=== PATIENT | male | born 1980 | race Hispanic/Latino ===

== ENCOUNTER 2017-09-17 22:50 | Inpatient (IN) | payer BC ==
[~2017-09-17] VITALS: Ht 172.7 cm; Wt 135.6 kg
[2017-09-17] MEDS ORDERED: ONDANSETRON HCL MDV 20ML 2 MG/ML VIAL ONE (23:11)
[2017-09-17] MEDS ORDERED: MORPHINE SULFATE 4 MG/1ML SYG ONE ×2 (23:11→23:47)
[2017-09-17] MEDS ORDERED: SODIUM CHLORIDE 0.9% 1000ML 1,000 ML IV ONE (23:11)
[2017-09-17 23:22] LABS: EOSINOPHILS % (AUTO) 2.4 % (0.0-8.0); HEMATOCRIT 44.6 % (42-54); MEAN CORPUSCULAR HEMOGLOBIN 30.2 pg (27.0-33.0); MEAN CORPUSCULAR VOLUME 88.7 fL (79-99); MONOCYTES % (AUTO) 6.7 % (3.0-13.0); NEUTROPHILS % (AUTO) 78.9 % (40.0-77.0); PLATELET COUNT (AUTO) 335 K/uL (130-400); RED BLOOD CELL COUNT(AUTO) 5.03 MIL/uL (4.50-6.20); RED CELL DISTRIBUTION WIDTH 13.7 % (11.0-15.5); WHITE BLOOD COUNT (AUTO) 8.4 K/uL (4.8-10.8)
[2017-09-17 23:26] LABS: CREATININE 0.9 mg/dL (0.5-1.5); POTASSIUM 3.4 mmol/L (3.5-5.1)
[2017-09-17 23:30] LABS: ALBUMIN 3.6 g/dL (3.5-5.0); BILIRUBIN,TOTAL 4.5 mg/dL (0.2-1.0); TOTAL PROTEIN, SERUM 8.3 g/dL (6.0-8.3)
[2017-09-18 02:15] VITALS: BP 125/75
[2017-09-18] MEDS: SODIUM CHLORIDE 0.9% 1000ML 1,000 ML IV SCH ×3 (02:36→19:34)
[2017-09-18] MEDS: MEPERIDINE-PF 50 MG/ML SYG IVP PRN ×3 (03:44→20:10)
[2017-09-18 07:39] VITALS: BP 132/73
[2017-09-18] MEDS: PANTOPRAZOLE 40 MG/VIAL IVP SCH ×2 (08:55→20:10)
[2017-09-18] MEDS: ENOXAPARIN SODIUM 40 MG/0.4 ML SYRINGE SQ SCH (08:58)
[2017-09-18 11:00] VITALS: BP 123/76
[2017-09-18 16:00] VITALS: BP 111/65
[2017-09-18 19:00] VITALS: BP 122/70
[2017-09-18] MEDS ORDERED: DIPHENHYDRAMINE HCL 25 MG CAPSULE PO PRN (22:45)
[2017-09-18 23:00] VITALS: BP 125/70
[2017-09-18] MEDS ORDERED: POTASSIUM CHLORIDE 20 MEQ ERTAB PO PRN (23:00)
[2017-09-18] MEDS ORDERED: POTASSIUM CHLORIDE 20MEQ/100ML 100 ML IV PRN (23:00)
[2017-09-18] MEDS ORDERED: POTASSIUM CHLORIDE 10% ELIXIR 20 MEQ/15 ML UDCUP PO PRN (23:00)
[2017-09-18] MEDS ORDERED: LIDOCAINE HCL-MPF 1% 2ML VIAL IVP PRN (23:00)
[2017-09-19 03:00] VITALS: BP 136/85
[2017-09-19] MEDS: SODIUM CHLORIDE 0.9% 1000ML 1,000 ML IV SCH ×3 (03:21→18:34)
[2017-09-19] MEDS: MEPERIDINE-PF 50 MG/ML SYG IVP PRN ×3 (05:01→20:30)
[2017-09-19 05:13] LABS: HEMATOCRIT 40.4 % (42-54); MEAN CORPUSCULAR HEMOGLOBIN 30.3 pg (27.0-33.0); MEAN CORPUSCULAR HGB CONC 34.3 g/dL (32.0-36.0); MEAN CORPUSCULAR VOLUME 88.4 fL (79-99); PLATELET COUNT (AUTO) 302 K/uL (130-400); RED BLOOD CELL COUNT(AUTO) 4.58 MIL/uL (4.50-6.20); RED CELL DISTRIBUTION WIDTH 13.9 % (11.0-15.5); WHITE BLOOD COUNT (AUTO) 6.1 K/uL (4.8-10.8)
[2017-09-19 05:14] LABS: BILIRUBIN,TOTAL 3.9 mg/dL (0.2-1.0); CREATININE 0.8 mg/dL (0.5-1.5); POTASSIUM 3.7 mmol/L (3.5-5.1)
[2017-09-19 08:46] VITALS: BP 136/71
[2017-09-19] MEDS: ENOXAPARIN SODIUM 40 MG/0.4 ML SYRINGE SQ SCH (09:17)
[2017-09-19] MEDS: PANTOPRAZOLE 40 MG/VIAL IVP SCH ×2 (09:17→20:30)
[2017-09-19 11:00] VITALS: BP 119/73
[2017-09-19] MEDS: ONDANSETRON HCL MDV 20ML 2 MG/ML VIAL IVP PRN (14:28)
[2017-09-19 16:00] VITALS: BP 136/75
[2017-09-19 19:15] VITALS: BP 136/73
[2017-09-20] VITALS (7 sets, daily range): BP systolic 122–136; BP diastolic 69–86
[2017-09-20] MEDS: ONDANSETRON HCL MDV 20ML 2 MG/ML VIAL IVP PRN ×3 (00:39→20:34)
[2017-09-20] MEDS: SODIUM CHLORIDE 0.9% 1000ML 1,000 ML IV SCH ×2 (00:39→16:16)
[2017-09-20 08:32] LABS: BASOPHILS % (AUTO) 1.4 % (0.0-5.0); HEMATOCRIT 43.1 % (42-54); LYMPHOCYTES % (AUTO) 28.6 % (21.0-51.0); MEAN CORPUSCULAR HEMOGLOBIN 30.2 pg (27.0-33.0); MEAN CORPUSCULAR HGB CONC 33.9 g/dL (32.0-36.0); MONOCYTES % (AUTO) 11.4 % (3.0-13.0); NEUTROPHILS % (AUTO) 53.6 % (40.0-77.0); NUCLEATED RED BLOOD CELLS 0.1 % (0.0-0.19); PLATELET COUNT (AUTO) 303 K/uL (130-400); RED BLOOD CELL COUNT(AUTO) 4.85 MIL/uL (4.50-6.20); RED CELL DISTRIBUTION WIDTH 13.8 % (11.0-15.5); WHITE BLOOD COUNT (AUTO) 5.1 K/uL (4.8-10.8)
[2017-09-20 08:37] LABS: CREATININE 0.8 mg/dL (0.5-1.5); POTASSIUM 3.9 mmol/L (3.5-5.1)
[2017-09-20 08:42] LABS: INR 0.94 (0.85-1.15); PARTIAL THROMBOPLASTIN TIME 23.6 SEC (26.3-35.5); PROTHROMBIN TIME 9.7 SEC (9.6-11.6)
[2017-09-20 08:43] LABS: ALBUMIN 3.2 g/dL (3.5-5.0); BILIRUBIN,TOTAL 3.6 mg/dL (0.2-1.0); TOTAL PROTEIN, SERUM 7.6 g/dL (6.0-8.3)
[2017-09-20] MEDS ORDERED: GADOBENATE DIMEGLUMINE 20 ML IV ONE (09:19)
[2017-09-20] MEDS: ENOXAPARIN SODIUM 40 MG/0.4 ML SYRINGE SQ SCH (09:21)
[2017-09-20] MEDS: PANTOPRAZOLE 40 MG/VIAL IVP SCH (09:22)
[2017-09-21] MEDS: SODIUM CHLORIDE 0.9% 1000ML 1,000 ML IV SCH ×2 (01:05→17:49)
[2017-09-21 04:05] VITALS: BP 134/76
[2017-09-21 08:08] VITALS: BP 124/74
[2017-09-21] MEDS: PANTOPRAZOLE 40 MG/VIAL IVP SCH (10:51)
[2017-09-21 11:54] VITALS: BP 127/85
[2017-09-21 12:15] LABS: HEPATITIS A ANTIBODY IGM Negative (Negative); HEPATITIS B CORE IGM Negative (Negative); HEPATITIS Bs ANTIGEN SCREEN P Negative (Negative)
[2017-09-21 15:23] VITALS: BP 128/74
[2017-09-21] MEDS: MEPERIDINE-PF 50 MG/ML SYG IVP PRN (18:56)
[2017-09-21 19:35] VITALS: BP 125/66
[2017-09-21 22:01] LABS: ALBUMIN 3.3 g/dL (3.5-5.0); BILIRUBIN,TOTAL 3.3 mg/dL (0.2-1.0); CREATININE 0.9 mg/dL (0.5-1.5); POTASSIUM 3.7 mmol/L (3.5-5.1); TOTAL PROTEIN, SERUM 7.8 g/dL (6.0-8.3)
[2017-09-21] MEDS: ONDANSETRON HCL MDV 20ML 2 MG/ML VIAL IVP PRN (23:38)
[2017-09-22] VITALS (22 sets, daily range): BP systolic 76–151; BP diastolic 36–94
[2017-09-22] MEDS: SODIUM CHLORIDE 0.9% 1000ML 1,000 ML IV SCH ×2 (02:59→14:56)
[2017-09-22] MEDS ORDERED: ISOVUE-370 50ML VIAL IV ONE (06:48)
[2017-09-22] MEDS ORDERED: GLYCOPYRROLATE 0.2 MG/ML 5 ML VIAL ONE (06:54)
[2017-09-22] MEDS ORDERED: DEXAMETHASONE SOD PHOSPHATE 10MG/ML 1ML VIAL ONE (06:55)
[2017-09-22] MEDS ORDERED: ROCURONIUM BROMIDE 10MG/1ML 5ML VL ONE (06:55)
[2017-09-22] MEDS ORDERED: MIDAZOLAM HCL 1 MG/ML 2ML VIAL ONE ×2 (06:55→07:24)
[2017-09-22] MEDS ORDERED: LIDOCAINE PF 2% 5ML ABBOJECT ONE (06:55)
[2017-09-22] MEDS ORDERED: LIDOCAINE HCL MPF 1% 5ML VIAL ONE (06:55)
[2017-09-22] MEDS ORDERED: LIDOCAINE HCL 2% JELLY 5 ML ONE (06:55)
[2017-09-22] MEDS ORDERED: LIDOCAINE HCL 4% LTA SOL 4 ML VIAL ONE (06:55)
[2017-09-22] MEDS ORDERED: PROPOFOL 10 MG/ML 20ML VIAL IV ONE ×2 (06:55→07:24)
[2017-09-22] MEDS ORDERED: NEOSTIGMINE METHYLSULFATE 1MG/ML IV ONE (06:55)
[2017-09-22] MEDS ORDERED: SUCCINYLCHOLINE CHLORIDE 20 MG/ML 10 ML VIAL ONE ×2 (06:55→07:06)
[2017-09-22] MEDS ORDERED: ONDANSETRON HCL MDV 20ML 2 MG/ML VIAL ONE (06:55)
[2017-09-22] MEDS ORDERED: FENTANYL CITRATE PF 50 MCG/1 ML 5ML AMP IV ONE ×2 (06:56)
[2017-09-22] MEDS: INDOMETHACIN 50 MG SUPP.RECT RC SCH ×2 (07:40→08:40)
[2017-09-22] MEDS: FAMOTIDINE/PF 20 MG/2 ML VIAL IV SCH ×2 (08:48→20:31)
[2017-09-22] MEDS ORDERED: PHENOL 177 ML BOTTLE PO PRN (11:00)
[2017-09-22] MEDS: ONDANSETRON HCL MDV 20ML 2 MG/ML VIAL IVP PRN (19:14)
[2017-09-23 04:26] VITALS: BP 126/66
[2017-09-23] MEDS: SODIUM CHLORIDE 0.9% 1000ML 1,000 ML IV SCH ×2 (04:49→17:40)
[2017-09-23 06:23] LABS: BILIRUBIN,DIRECT 1.3 mg/dL (0.0-0.3); BILIRUBIN,TOTAL 2.1 mg/dL (0.2-1.0); CREATININE 0.8 mg/dL (0.5-1.5); POTASSIUM 3.7 mmol/L (3.5-5.1); TOTAL PROTEIN, SERUM 7.4 g/dL (6.0-8.3)
[2017-09-23 08:03] VITALS: BP 115/69
[2017-09-23] MEDS: ONDANSETRON HCL MDV 20ML 2 MG/ML VIAL IVP PRN (08:03)
[2017-09-23] MEDS: FAMOTIDINE/PF 20 MG/2 ML VIAL IV SCH (08:03)
[2017-09-23 11:09] VITALS: BP 130/65
[2017-09-23 16:25] VITALS: BP 123/72
== END 2017-09-23 18:35 | disposition home or self-care (01) | DRG 439 ==
LOC: EDH 22:50 → OBSVTOIN 09-18 01:30 → 3AH 09-18 01:30
PROVIDERS: ADMIT Internal Medicine; ATTEND Internal Medicine
PROC: 0F798ZZ Dilation of Common Bile Duct, Via Natural or Artificial Opening Endoscopic (ICD-10-PCS; principal; 2017-09-22)
DX: K85.10 Biliary acute pancreatitis without necrosis or infection (principal); K80.51 Calculus of bile duct without cholangitis or cholecystitis with obstruction; K86.1 Other chronic pancreatitis; Z90.49 Acquired absence of other specified parts of digestive tract
CPT/HCPCS: 36415; 74183; 74330; 76705; 80053; 80074; 80076; 82248; 83690; 84478; 85025; 85027; 85610; 85730; 93005; 99291; A9577; C1769; C1773; C9113; J0330; J1100; J1650; J2001; J2175; J2250; J2270; J2704; J2710; J3010; J3490; J7030; Q0163; Q9967

== ENCOUNTER 2017-11-22 22:38 | Inpatient (IN) | payer BC ==
[~2017-11-22] VITALS: Ht 170.2 cm; Wt 132.4 kg
[2017-11-22 23:00] LABS: BASOPHILS % (AUTO) 1.2 % (0.0-5.0); EOSINOPHILS % (AUTO) 2.1 % (0.0-8.0); HEMATOCRIT 40.9 % (42-54); LYMPHOCYTES % (AUTO) 36.7 % (21.0-51.0); MEAN CORPUSCULAR HEMOGLOBIN 30.4 pg (27.0-33.0); MEAN CORPUSCULAR HGB CONC 34.7 g/dL (32.0-36.0); MEAN CORPUSCULAR VOLUME 87.7 fL (79-99); MONOCYTES % (AUTO) 10.4 % (3.0-13.0); NEUTROPHILS % (AUTO) 49.6 % (40.0-77.0); PLATELET COUNT (AUTO) 297 K/uL (130-400); RED BLOOD CELL COUNT(AUTO) 4.66 MIL/uL (4.50-6.20); RED CELL DISTRIBUTION WIDTH 13.2 % (11.0-15.5); WHITE BLOOD COUNT (AUTO) 7.6 K/uL (4.8-10.8)
[2017-11-22 23:08] LABS: CREATININE 1.1 mg/dL (0.5-1.5); POTASSIUM 3.7 mmol/L (3.5-5.1)
[2017-11-22] MEDS ORDERED: FAMOTIDINE/PF 20 MG/2 ML VIAL IV ONE (23:08)
[2017-11-22] MEDS ORDERED: MORPHINE SULFATE 2 MG/ML 1ML SYG ONE (23:08)
[2017-11-22 23:12] LABS: ALBUMIN 3.7 g/dL (3.5-5.0); BILIRUBIN,TOTAL 0.2 mg/dL (0.2-1.0); TOTAL PROTEIN, SERUM 7.6 g/dL (6.0-8.3)
[2017-11-22] MEDS ORDERED: MAG HYDROX/AL HYDROX/SIMETH ES 30 ML SUSP UDCUP ONE (23:38)
[2017-11-22] MEDS ORDERED: LIDOCAINE HCL 2% VISCOUS 15 ML UDCUP ONE (23:38)
[2017-11-23] MEDS ORDERED: SODIUM CHLORIDE 0.9% 1000ML 1,000 ML IV ONE ×2 (00:45→08:40)
[2017-11-23] MEDS ORDERED: KETOROLAC TROMETHAMINE 30MG/ML ONE (00:45)
[2017-11-23 02:14] LABS: APPEARANCE,URINE Turbid (CLEAR); BILIRUBIN,URINE Negative (NEGATIVE); COLOR,URINE Yellow (YELLOW); GLUCOSE, URINE (UA) Negative (NEGATIVE); KETONES,URINE Negative (NEGATIVE); LEUKOCYTE ESTERASE ,URINE Negative (NEGATIVE); NITRATE,URINE Negative (NEGATIVE); OCCULT BLOOD,URINE Negative (NEGATIVE); PH,URINE 8.5 (5.0-8.0); PROTEIN,URINE Trace (NEGATIVE); UROBILINOGEN,URINE 0.2 mg/dL (0.2-1.0)
[2017-11-23 02:32] LABS: BACTERIA,URINE Few /HPF (None Seen); RBC,URINE 0-1 /HPF (0-1); SQUAMOUS EPITHELIAL CELL,UR 0-2 /HPF (0-2)
[2017-11-23 02:33] LABS: AMORPHOUS SEDIMENT,UR Moderate /LPF (None Seen)
[2017-11-23] MEDS ORDERED: MORPHINE SULFATE 4 MG/1ML SYG ONE (08:32)
[2017-11-23 11:00] VITALS: BP 112/74
[2017-11-23] MEDS: SODIUM CHLORIDE 0.9% 1000ML 1,000 ML IV SCH ×2 (12:15→22:42)
[2017-11-23] MEDS ORDERED: MORPHINE SULFATE 2 MG/ML 1ML SYG IVP PRN (12:15)
[2017-11-23 14:53] LABS: BASOPHILS % (AUTO) 0.9 % (0.0-5.0); EOSINOPHILS % (AUTO) 2.6 % (0.0-8.0); HEMATOCRIT 39.4 % (42-54); LYMPHOCYTES % (AUTO) 38.4 % (21.0-51.0); MEAN CORPUSCULAR HEMOGLOBIN 30.6 pg (27.0-33.0); MEAN CORPUSCULAR HGB CONC 34.7 g/dL (32.0-36.0); MEAN CORPUSCULAR VOLUME 88.2 fL (79-99); MONOCYTES % (AUTO) 8.9 % (3.0-13.0); NEUTROPHILS % (AUTO) 49.2 % (40.0-77.0); PLATELET COUNT (AUTO) 287 K/uL (130-400); RED BLOOD CELL COUNT(AUTO) 4.47 MIL/uL (4.50-6.20); RED CELL DISTRIBUTION WIDTH 13.3 % (11.0-15.5); WHITE BLOOD COUNT (AUTO) 6.2 K/uL (4.8-10.8)
[2017-11-23 15:05] LABS: ALBUMIN 3.3 g/dL (3.5-5.0); BILIRUBIN,TOTAL 0.5 mg/dL (0.2-1.0); CREATININE 0.9 mg/dL (0.5-1.5); POTASSIUM 3.6 mmol/L (3.5-5.1); TOTAL PROTEIN, SERUM 6.8 g/dL (6.0-8.3)
[2017-11-23 16:00] VITALS: BP 120/72
[2017-11-23] MEDS: ENOXAPARIN SODIUM 40 MG/0.4 ML SYRINGE SQ SCH (17:00)
[2017-11-23] MEDS ORDERED: ACETAMINOPHEN-CODEINE 300/30MG TAB PO PRN (17:00)
[2017-11-23] MEDS ORDERED: HYDRALAZINE HCL 20 MG/ML VIAL IV PRN (17:00)
[2017-11-23] MEDS ORDERED: LACTULOSE 20 GM/30 ML UDCUP PO PRN (17:00)
[2017-11-23] MEDS ORDERED: ACETAMINOPHEN 325 MG TAB PO PRN (17:00)
[2017-11-23] MEDS ORDERED: ONDANSETRON HCL 4 MG/2 ML VIAL IVP PRN (17:00)
[2017-11-23 19:25] VITALS: BP 111/76
[2017-11-23 23:10] VITALS: BP 119/68
[2017-11-24 03:20] VITALS: BP 114/72
[2017-11-24 05:01] LABS: BASOPHILS % (AUTO) 1.1 % (0.0-5.0); HEMATOCRIT 40.4 % (42-54); LYMPHOCYTES % (AUTO) 40.1 % (21.0-51.0); MEAN CORPUSCULAR HEMOGLOBIN 30.1 pg (27.0-33.0); MEAN CORPUSCULAR VOLUME 88.5 fL (79-99); MONOCYTES % (AUTO) 8.6 % (3.0-13.0); NEUTROPHILS % (AUTO) 47.2 % (40.0-77.0); PLATELET COUNT (AUTO) 268 K/uL (130-400); RED BLOOD CELL COUNT(AUTO) 4.57 MIL/uL (4.50-6.20); RED CELL DISTRIBUTION WIDTH 13.3 % (11.0-15.5); WHITE BLOOD COUNT (AUTO) 6.9 K/uL (4.8-10.8)
[2017-11-24 05:19] LABS: BILIRUBIN,DIRECT 0.1 mg/dL (0.0-0.3); BILIRUBIN,TOTAL 0.4 mg/dL (0.2-1.0); CREATININE 0.7 mg/dL (0.5-1.5); POTASSIUM 3.6 mmol/L (3.5-5.1); TOTAL PROTEIN, SERUM 6.5 g/dL (6.0-8.3)
[2017-11-24 07:36] VITALS: BP 110/64
[2017-11-24] MEDS ORDERED: PANTOPRAZOLE 40 MG/VIAL IVP SCH (09:00)
[2017-11-24] MEDS: ENOXAPARIN SODIUM 40 MG/0.4 ML SYRINGE SQ SCH (09:09)
[2017-11-24 11:38] VITALS: BP 117/74
[2017-11-25] MEDS ORDERED: PANTOPRAZOLE SODIUM 40 MG TABLET.DR PO SCH (07:30)
== END 2017-11-24 15:16 | disposition home or self-care (01) | DRG 439 ==
LOC: EDH 22:38 → EDHIP 11-23 08:11 → 4AH 11-23 11:21
PROVIDERS: ADMIT Family Medicine; ATTEND Family Medicine
DX: K85.90 Acute pancreatitis without necrosis or infection, unspecified (principal); Z68.42 Body mass index [BMI] 45.0-49.9, adult; E66.9 Obesity, unspecified; Z82.49 Family history of ischemic heart disease and other diseases of the circulatory system; Z83.3 Family history of diabetes mellitus
CPT/HCPCS: 36415; 74176; 80048; 80053; 80061; 80076; 81001; 82150; 83690; 83735; 85025; 93005; C9113; J1650; J1885; J2270; J3490; J7030